=== PATIENT | female | born 1950 | race American Indian/Alaskan Native ===

== ENCOUNTER 2016-12-15 05:42 | Emergency (ER) | payer MEDICARE ==
[2016-12-15 14:19] LABS: Hematocrit 37.3 % (30.3-42.9); Hemoglobin 11.6 gm/dl (10.1-14.3); Mean Corpuscular HGB Conc 31 % (30-34); Mean Corpuscular Volume 82 fl (79-97); Platelet Count 258 K/mm3 (140-440); Red Blood Count 4.57 M/mm3 (3.65-5.03); Red Cell Distribution Width 15.6 % (13.2-15.2); White Blood Count 8.7 K/mm3 (4.5-11.0)
[2016-12-15 14:20] LABS: Mean Corpuscular Hemoglobin 26 pg (28-32)
[2016-12-15 14:21] LABS: Anion Gap 21 mmol/L; BUN/Creatinine Ratio 22.85; Blood Urea Nitrogen 16 mg/dL (7-17); Calcium 9.9 mg/dL (8.4-10.2); Carbon Dioxide 26 mmol/L (22-30); Chloride 95.5 mmol/L (98-107); Glucose 120 mg/dL (65-100); Potassium 3.9 mmol/L (3.6-5.0); Sodium 139 mmol/L (137-145)
[2016-12-15] MEDS: PROVENTIL IH ONE (14:53)
[2016-12-15] MEDS: ATROVENT IH ONE (14:53)
[2016-12-15 15:02] LABS: Basophils % (Manual) 0 % (0.0-1.8); Blastocytes % (Manual) 0 %; Diff Status Complete; Hypochromasia Few; Large Platelets Few; Ovalocytes Few
--- NOTE | 2016-12-15 15:16 | XRay Report ---
ROUTINE CHEST, TWO VIEWS: HISTORY: Cough. The trachea, heart, mediastinal contour, lung kaufman and bony thorax are unremarkable. IMPRESSION: Unremarkable chest x-ray.
[2016-12-15] MEDS: MAGNESIUM SULFATE 2GM/50ML 2 GM/50 ML BAG IV ONE (15:18)
[2016-12-15] MEDS ORDERED: PROVENTIL IH ONE (16:30)
--- NOTE | 2016-12-15 16:30 | Emergency Department Report ---
HPI - General Chief Complaint: Dyspnea/Respdistress Time Seen by Provider: 12/15/16 13:35 - HPI HPI: This is a 66-year-old after [place] female presents to the emergency department with complaint of a 2 day history of wheezing and a productive cough with white sputum. Sometimes the coughing occurs with coughing fits and causes some soreness across her chest wall and rib cage. She denies any fever, back pain, chest pain, nausea, vomiting or diaphoresis. Patient has a history of asthma. When asked presents to the hospital, the patient says "my asthma." She has albuterol inhaler that she's been using without much relief. She has a history of [id number] diabetes, hypertension but denies any history of HI, CVA, PE/DVT. Patient is a [facility] patient. No recent travel or sick contacts at home. ED Past Medical Hx - Past Medical History Previous Medical History?: Yes Hx Hypertension: Yes Hx Diabetes: Yes Hx Asthma: Yes - Surgical History Past Surgical History?: No - Social History Smoking Status: Never Smoker Substance Use Type: None - Medications Home Medications: Home Medications Medication Instructions Recorded Confirmed Last Taken Type guaiFENesin/CODEINE [Robitussin AC] 5 ml PO Q6H PRN #100 ml 12/15/16 Unknown Rx predniSONE [Deltasone] 20 mg PO BID #8 tab 12/15/16 Unknown Rx ED Review of Systems ROS: Stated complaint: ASTHMA Other details as noted in HPI Comment: All other systems reviewed and negative Constitutional: denies: chills, fever Eyes: denies: eye pain, eye discharge, vision change ENT: denies: ear pain, throat pain Respiratory: cough, shortness of breath, wheezing Cardiovascular: denies: edema, syncope Gastrointestinal: denies: abdominal pain, nausea, diarrhea Genitourinary: denies: urgency, dysuria, discharge Musculoskeletal: denies: back pain, joint swelling, arthralgia Skin: denies: rash, lesions Neurological: denies: headache, weakness, paresthesias Physical Exam - Physical Exam Vital Signs: Vital Signs 12/15/16 12/15/16 12/15/16 05:53 12:39 12:41 Temperature 97.6 F 98.3 F Pulse Rate 101 H 76 Pulse Rate [ Anterior Bilateral Upper Lobe] Respiratory 20 16 16 Rate Respiratory Rate [Anterior Bilateral Upper Lobe] Blood Pressure 217/92 Blood Pressure 157/77 [Left] O2 Sat by Pulse 97 99 99 Oximetry 12/15/16 12/15/16 14:55 15:07 Temperature Pulse Rate Pulse Rate [ 78 80 Anterior Bilateral Upper Lobe] Respiratory Rate Respiratory 18 18 Rate [Anterior Bilateral Upper Lobe] Blood Pressure Blood Pressure [Left] O2 Sat by Pulse Oximetry Physical Exam: GENERAL: The patient is well-developed well-nourished. HEENT: Normocephalic. Atraumatic. Extraocular motions are intact. Patient has moist mucous membranes. Pupils equal reactive to light bilaterally. NECK: Supple. Trachea is midline. CHEST/LUNGS: Moderate expiratory wheezing throughout the chest. There is a dry cough heard during examination. No tachypnea or accessory muscle use. There is no respiratory distress noted. HEART/CARDIOVASCULAR: Regular. There is no tachycardia. There is no gallop rub or murmur. ABDOMEN: Abdomen is soft, nontender. Patient has normal bowel sounds. There is no abdominal distention. SKIN: There is no rash. There is no edema. There is no diaphoresis. NEURO: The patient is awake, alert, and oriented. The patient is cooperative. The patient has no focal neurologic deficits. The patient has normal speech. MUSCULOSKELETAL: There is no tenderness or deformity. There is no limitation range of motion. There is no evidence of acute injury. ED Course Vital Signs 12/15/16 12/15/16 12/15/16 05:53 12:39 12:41 Temperature 97.6 F 98.3 F Pulse Rate 101 H 76 Pulse Rate [ Anterior Bilateral Upper Lobe] Respiratory 20 16 16 Rate Respiratory Rate [Anterior Bilateral Upper Lobe] Blood Pressure 217/92 Blood Pressure 157/77 [Left] O2 Sat by Pulse 97 99 99 Oximetry 12/15/16 12/15/16 14:55 15:07 Temperature Pulse Rate Pulse Rate [ 78 80 Anterior Bilateral Upper Lobe] Respiratory Rate Respiratory 18 18 Rate [Anterior Bilateral Upper Lobe] Blood Pressure Blood Pressure [Left] O2 Sat by Pulse Oximetry ED Medical Decision Making - Lab Data Result diagrams: 12/15/16 13:51 12/15/16 13:51 - EKG Data -: EKG Interpreted by Nh EKG shows normal: sinus rhythm, axis, intervals, QRS complexes, ST-T waves Rate: normal - EKG Data When compared to previous EKG there are: previous EKG unavailable Interpretation: normal EKG - Radiology Data Radiology results: image reviewed interpreted by me: Chest x-ray did not show any acute process. Heart is normal shape and size. No effusions. No pneumothorax. No signs of pneumonia seen. - Medical Decision Making 66-year-old female presents emergency Department with 2 days of what appears to be a asthma exacerbation with some bronchospasm. EKG was done due to her complaint of some soreness of the ribs but it did not show any signs of ST elevation HI, dysrhythmia or ischemia. Chest x-ray did not show any acute process including pneumonia. Patient was given some breathing treatments including Atrovent and upon reevaluation she is feeling better. She was given a dose of prednisone. Patient's labs are unremarkable including no signs of infection, electrolyte abnormalities, renal sufficiency or glucose abnormalities. Negative troponin. Patient is to follow-up with Ale[facility]. She' ll go home with a four-day course of steroids. She says she has enough albuterol at home. She understands to return to the emergency department with any worsening of her symptoms or any acute distress. Patient did present with some elevated blood pressure to triage but came down to a more reasonable level without any antihypertensives. - Differential Diagnosis asthma, pneumonia, bronchitis, CHF Critical Care Time: No Critical care attestation.: If time is entered above; I have spent that time in minutes in the direct care of this critically ill patient, excluding procedure time. ED Disposition Clinical Impression: Asthma exacerbation, Bronchospasm Hypertension Qualifiers: Hypertension type: essential hypertension Qualified Code(s): I10 - Essential ( primary) hypertension Disposition: DISCHARGED TO HOME OR SELFCARE Is pt being admited?: Yes Condition: Stable Instructions: Asthma (ED), Hypertension (ED) Additional Instructions: Please follow-up with your primary care doctor in the next few days. Return to the emergency department with any worsening of your symptoms or any acute distress. Please try to stay away from foods that are high in salt and caffeinated products to assist with her blood pressure. You've been given a 4 day course of steroids to help with your wheezing but steroids can sometimes elevate your blood sugar. Continue taking her metformin, but I recommend trying to stay with from foods that are high in carbohydrates and starches and sugars to assist with her diabetes. Return to the emergency department with any worsening of your symptoms or any acute distress. You've been prescribed a medication that is sedating. Therefore this medication cannot be mixed with alcohol, or taken prior to driving, working, or being responsible for children. Prescriptions: guaiFENesin/CODEINE [Robitussin AC] 5 ml PO Q6H PRN #100 ml PRN Reason: Cough predniSONE [Deltasone] 20 mg PO BID #8 tab Referrals: PRIMARY CARE, [Primary Care Provider] - 3-5 Days Time of Disposition: 16:30
[2016-12-15] MEDS: DELTASONE PO ONE (17:17)
[2016-12-15 17:30] VITALS: BP 155/72
== END 2016-12-15 17:38 | disposition home or self-care (01) ==
LOC: ED 05:42
DX: J45.901 Unspecified asthma with (acute) exacerbation (principal); I10 Essential (primary) hypertension; E11.9 Type 2 diabetes mellitus without complications
CPT/HCPCS: 36415; 71020; 80048; 84484; 85007; 85025; 93005; 93010; 94640; 96365; 99284; J7512